=== PATIENT | female | born 1980 | race Two or more races ===

== ENCOUNTER 2020-06-24 15:49 | Emergency (ER) | payer MEDICAID ==
[~2020-06-24] VITALS: Ht 165.1 cm; Wt 131.5 kg
--- NOTE | 2020-06-24 16:40 | NUR ---
ED Nurse Note: Pt cleared by health care Provider for discharge. DC instructions/prescription was given and explained to pt and verbalized understanding of teachings. All medical deviecs such as ID band removed. Pt is AAO x4, ambulatory and left with all personal belongings.
--- NOTE | 2020-06-24 16:41 | Emergency Room Report ---
History of Present Illness General Chief Complaint: Earache Source: Patient Present Illness HPI 40-year-old female presents to the emergency department complaining of 9 out of 10 severity pain in the right ear that is a constant throbbing sensation x6 days. Patient reports she has been taking Tylenol and Motrin [id number] with little to no relief of her symptoms. Patient reports she is had chills but she is not sure if she has had fevers as she has been taking Tylenol and Motrin. Patient does report history of frequent ear infections and states that she was previously being seen by a ears nose throat specialist however with COVID-19 there was some fall through. Patient denies neck pain or stiffness. She denies discharge from the ear or external ear tenderness. She denies loss of hearing. no other aggravating or relieving factors at this time. Allergies: Coded Allergies: No Known Allergies (Unverified , 06/24/20) COVID-19 Screening Contact w/high risk pt: No Experienced COVID-19 symptoms?: No COVID-19 Testing performed COLOR MATCHER: No Patient History Past Medical History: see triage record Past Surgical History: none Last Menstrual Period: 06/04/2020 Now: No Reviewed Nursing Documentation: PMH: Agreed; PSxH: Agreed Nursing Documentation-PMH Past Medical History: No Stated History Review of Systems All Other Systems: negative except mentioned in HPI Physical Exam Vital Signs Date Time Temp Pulse Resp B/P (MAP) Pulse Ox O2 Delivery O2 Flow Rate FiO2 06/24/20 16:11 98.1 78 18 134/67 (89) 96 Room Air Sp02 EP Interpretation: reviewed, normal General Appearance: no apparent distress, alert, GCS 15, non-toxic Head: normocephalic, atraumatic Eyes: bilateral eye normal inspection, bilateral eye PERRL ENT: hearing grossly normal, normal voice, other - Right tympanic membrane is bulging and erythematous with some opaque discoloration to the lower portion. There is no discharge or erythema of the canal. The left tympanic membrane and canal are within normal limits. No evidence of mastoiditis. No perforations Neck: full range of motion, no meningismus, no bony tend Respiratory: lungs clear, normal breath sounds, speaking full sentences Cardiovascular #1: regular rate, rhythm Musculoskeletal: normal range of motion, gait/station normal, non-tender Neurologic: alert, motor strength/tone normal, oriented x3, sensory intact, responsive, speech normal Psychiatric: judgement/insight normal Skin: no rash, normal color Lymphatic: no adenopathy Medical Decision Making PA Attestation Dr. Mitchell is my supervising Physician whom patient management has been discussed with. Diagnostic Impression: Primary Impression: Otitis media Qualified Codes: H66.91 - Otitis media, unspecified, right ear ER Course 40-year-old female presents to the emergency department complaining of 9 out of 10 severity pain in the right ear that is a constant throbbing sensation x6 days. Patient reports she has been taking Tylenol and Motrin [id number] with little to no relief of her symptoms. Patient reports she is had chills but she is not sure if she has had fevers as she has been taking Tylenol and Motrin. Patient does report history of frequent ear infections and states that she was previously being seen by a ears nose throat specialist however with COVID-19 there was some fall through. Patient denies neck pain or stiffness. She denies discharge from the ear or external ear tenderness. She denies loss of hearing. no other aggravating or relieving factors at this time. Ddx considered but are not limited to OM, OE, mastoiditis, TM perforation, FB Vital signs: are WNL, pt. is afebrile H&PE are most consistent with otitis media- Right ear- uncomplicated without perforation, ORDERS: none required at this time, the diagnosis is clinical ED INTERVENTIONS: None required at this time. -I do not identify an emergent condition at this time. With current presentation, pt. is stable for close outpatient follow up and conservative treatment. D/w pt. to return promptly to ED with worsening or new symptoms.- Pt. verbalizes' understanding and agreement with proposed treatment plan. DISCHARGE: At this time pt. is stable for d/c to home. With PO ABX. Will provide printed patient care instructions, and any necessary prescriptions. Care plan and follow up instructions have been discussed with the patient prior to discharge. Last Vital Signs Date Time Temp Pulse Resp B/P (MAP) Pulse Ox O2 Delivery O2 Flow Rate FiO2 06/24/20 16:11 98.1 78 18 134/67 (89) 96 Room Air Status: improved Disposition: HOME, SELF-CARE Condition: Stable Scripts Acetaminophen With Codeine (T#3) (TYLENOL #3 TAB*) Y Tab 1 TAB ORAL Q6H PRN for For Pain, #9 TAB Prov: Sarah Skaggs 06/24/20 Amoxicillin/Potassium Clav 875-125* (AUGMENTIN 875-125 TABLET*) 1 Each Tablet 1 TAB ORAL TWICE A DAY for 10 Days, #20 TAB Prov: Sarah Skaggs 06/24/20 Referrals: [facility]ron [facility] Patient Instructions: Otitis Media, Adult, [id number] Additional Instructions: Take medications as directed. !!Do not drink alcohol, drive, or operate heavy machinery while taking Tylenol # 3 as this may cause drowsiness. Follow up with a Primary Care Provider in 3-5 days, even if your symptoms have resolved. --Please review list of primary care clinics, if you do not already have a primary care provider Return sooner to ED if new symptoms occur, or current symptoms become worse. - Please note that this Emergency Department Report was dictated using [employer]chorus master technology software, occasionally this can lead to erroneous entry secondary to interpretation by the dictation equipment. Sarah Skaggs Jun 24, 2020 16:41
[2020-06-24] MEDS ORDERED: AUGMENTIN 875-1 EAC1 ORAL (16:42)
[2020-06-24] MEDS ORDERED: ACETAMINOPHEN-1 EAC1 ORAL (16:42)
[2020-06-24 18:51] VITALS: BP 134/67
== END 2020-06-24 16:40 | disposition home or self-care (01) ==
LOC: EMR 16:40
DX: H66.91 Otitis media, unspecified, right ear (principal)
CPT/HCPCS: 99282

== ENCOUNTER 2020-07-05 18:26 | Emergency (ER) | payer MEDICAID ==
[~2020-07-05] VITALS: Ht 165.1 cm; Wt 131.5 kg
[~2020-07-05 18:26] MED LIST: ACETAMINOPHEN-1 EAC1 ORAL; AUGMENTIN 875-1 EAC1 ORAL
[2020-07-05 19:10] VITALS: BP 121/78
--- NOTE | 2020-07-05 19:28 | Emergency Room Report ---
History of Present Illness General Chief Complaint: Earache Source: Patient Present Illness HPI 40 YO Female presents to the ED c/o 03/07 in severity left ear pain with tenderness, swelling and discharge. She reports recently being on abx for right ear infection. Pt. denies fevers or chills. She reports hx of frequent ear infections. She denies suspicion of foreign body. She reports q-Tip use. She denies ST, or neck pain. She denies loss of hearing or decreased hearing. She denies rashes. Allergies: Coded Allergies: No Known Allergies (Unverified , 06/24/20) COVID-19 Screening Contact w/high risk pt: No Experienced COVID-19 symptoms?: No COVID-19 Testing performed SWING FRAME GRINDER OPERATOR: No Patient History Past Medical History: see triage record Past Surgical History: none Pertinent Family History: none Now: No Reviewed Nursing Documentation: PMH: Agreed; PSxH: Agreed Nursing Documentation-PMH Past Medical History: No Stated History Review of Systems All Other Systems: negative except mentioned in HPI Physical Exam Vital Signs Date Time Temp Pulse Resp B/P (MAP) Pulse Ox O2 Delivery O2 Flow Rate FiO2 07/05/20 18:52 98.8 98 20 121/78 (92) 95 Room Air Sp02 EP Interpretation: reviewed, normal General Appearance: no apparent distress, alert, GCS 15, non-toxic Head: normocephalic, atraumatic Eyes: bilateral eye normal inspection, bilateral eye PERRL ENT: hearing grossly normal, normal voice, other - Left ear canal is macerated, some external ear tenderness to palpation, no d/c noted.TM is wnl. The right ear -canal and the TM is WNL. Neck: full range of motion, no meningismus, no bony tend Respiratory: lungs clear, normal breath sounds, speaking full sentences Cardiovascular #1: regular rate, rhythm Musculoskeletal: normal range of motion, gait/station normal, non-tender Neurologic: alert, motor strength/tone normal, oriented x3, sensory intact, responsive, speech normal Psychiatric: judgement/insight normal Skin: no rash, normal color Lymphatic: no adenopathy Medical Decision Making PA Attestation Dr. Mitchell is my supervising Physician whom patient management has been discussed with. Diagnostic Impression: Primary Impression: Otitis externa of left ear Qualified Codes: H60.502 - Unspecified acute noninfective otitis externa, left ear ER Course 40 YO Female presents to the ED c/o 03/07 in severity left ear pain with tendern ess, swelling and discharge. She reports recently being on abx for right ear infection. Pt. denies fevers or chills. She reports hx of frequent ear infections. She denies suspicion of foreign body. She reports q-Tip use. She denies ST, or neck pain. She denies loss of hearing or decreased hearing. She denies rashes. Ddx considered but are not limited to OM, OE, mastoiditis, TM perforation, FB, shingles just to name a few. Vital signs: are WNL, pt. is afebrile H&PE are most consistent with otitis Externa ORDERS: none required at this time, the diagnosis is clinical -OTOSCOPY: Left ear canal is macerated, some external ear tenderness to palpation, no d/c noted.TM is wnl. The right ear -canal and the TM is WNL. ED INTERVENTIONS: None required at this time. DISCHARGE: At this time pt. is stable for d/c to home. With PO ABX. Will provide printed patient care instructions, and any necessary prescriptions. Care plan and follow up instructions have been discussed with the patient prior to discharge. Last Vital Signs Date Time Temp Pulse Resp B/P (MAP) Pulse Ox O2 Delivery O2 Flow Rate FiO2 07/05/20 18:52 98.8 98 20 121/78 (92) 95 Room Air Status: improved Disposition: HOME, SELF-CARE Condition: Stable Scripts Ciprofloxacin Hcl/Dexameth (CIPRODEX OTIC SUSPENSION) 7.5 Ml Drops.susp 4 DROP LEFT EAR TID, #7.5 ML Prov: Sarah Skaggs 07/05/20 Patient Instructions: Otitis Externa, [id number] Additional Instructions: Take medications as directed. Follow up with a Primary Care Provider in 3-5 days, even if your symptoms have resolved. Return sooner to ED if new symptoms occur, or current symptoms become worse. - Please note that this Emergency Department Report was dictated using [employer] department chair technology software, occasionally this can lead to erroneous entry secondary to interpretation by the dictation equipment. Sarah Skaggs Jul 05, 2020 19:28
[2020-07-05] MEDS ORDERED: CIPRODEX OTIC7.5 M1 LEFT EAR (19:29)
[2020-07-05 19:35] VITALS: BP 120/87
== END 2020-07-05 19:35 | disposition home or self-care (01) ==
LOC: EMR 19:31
DX: H60.92 Unspecified otitis externa, left ear (principal)
CPT/HCPCS: 99282